=== PATIENT | female | born 1990 | race American Indian/Alaskan Native ===

== ENCOUNTER 2021-02-24 10:13 | Emergency (ER) | payer OTHER, SELFPAY ==
[2021-02-24 10:36] VITALS: BP 129/73
== END 2021-02-24 11:57 | disposition home or self-care (01) ==
LOC: ED 10:13
DX: B34.9 Viral infection, unspecified (principal); F17.200 Nicotine dependence, unspecified, uncomplicated; Z79.899 Other long term (current) drug therapy; Z20.822 Contact with and (suspected) exposure to COVID-19
CPT/HCPCS: 99281